=== PATIENT | female | born 1980 | race Caucasian/White ===

== ENCOUNTER → 2021-05-03 | Outpatient (CLI) | payer BC ==
--- NOTE | 2021-05-03 09:12 | MM ---
Reason for exam: clinical finding. Baseline mammogram. History: Family history of breast cancer in grandmother. Took hormonal contraceptives for 3 years beginning at age 16. Physical Findings: Nurse did not find any significant physical abnormalities on exam. MG Diagnostic Mammo w CAD MIGNON Bilateral CC and MLO view(s) were taken. There are scattered fibroglandular densities. There is no discrete abnormality including area of concern. These results were verbally communicated with the patient and result sheet given to the patient on 05/03/21. ASSESSMENT: Negative, BI-RAD 1 RECOMMENDATION: Routine screening mammogram of both breasts in 1 year. Manage patient on a clinical basis.
== END | disposition home or self-care (01) ==
LOC: RADMAMWWP 08:19
PROVIDERS: ATTEND Obstetrics & Gynecology
DX: N64.89 Other specified disorders of breast (principal); Z80.3 Family history of malignant neoplasm of breast; Z79.3 Long term (current) use of hormonal contraceptives
CPT/HCPCS: 77066

== ENCOUNTER 2024-06-17 12:23 | Emergency (ER) | payer BC ==
[2024-06-17] MEDS: CEPHALEXIN 500 MG CAP PO STA (13:21)
--- NOTE | 2024-06-17 13:40 | USB ---
Reason for Exam: Clinical finding. Patient History: Menarche at age 14. First Full-Term at age 20. Hormonal Contraceptives for 3 years from age 16 until age 19. Maternal grandmother had breast cancer. Risk Values: Marci 5 year model risk: 0.6%. NCI Lifetime model risk: 8.0%. Technique: Method: Targeted. Prior Study Comparison: 05/03/2021 Bilateral Diagnostic Mammogram, [facility]. Findings: The upper section of the breast of the left breast, the medial section of the breast of the left breast, the axilla of the left breast and the retroareolar of the left breast were scanned. Technique utilized:US breast limited LT Image; Ultrasound imaging of: Area of concern, retroareolar region and axilla. Vehicle Service Attendant reports evidence of infection with the indurated skin and erythema. Single lymph node at 2:00 13 Partha nipple with thickened cortex up to 4 mm. No suspicious masses. Overall Assessment: Probably benign, BI-RAD 3 Management: Diagnostic Breast Ultrasound of the left breast in 3 months. Follow-up ultrasound to ensure resolution after treatment with antibiotics. A clinical breast exam by your physician is recommended on an annual basis and results should be correlated with mammographic findings. This exam should not preclude additional follow-up of suspicious palpable abnormalities. Results were given to the patient verbally at the time of exam. [facility], , 06/17/2024 1:36 PM. Electronically signed and approved by: Patrick Chanel DO
--- NOTE | 2024-06-17 13:48 | ED ---
General Adult HPI - General Chief complaint: Skin/Abscess/Foreign Body Stated complaint: Skin Abscess Time Seen by Provider: 06/17/24 12:41 Source: patient, RN notes reviewed, old records reviewed Mode of arrival: ambulatory Limitations: no limitations - History of Present Illness Initial comments: 43-year-old female with pain and swelling to the left breast over the past several days. Patient has an appointment with her primary care provider today but states that the redness to her breast was worsening and she felt subjective fever and chills. She had noted some drainage from an area of the nipple or immediately adjacent to the nipple and reports green drainage. Patient is a nondiabetic. - Related Data Home Medications Medication Instructions Recorded Confirmed Ibd-Aati-Wqkyt Acid 1 each PO DAILY 07/25/14 07/25/14 [-U Capsule] Previous Rx's Medication Instructions Recorded Acetaminophen-Codeine 300-30mg 2 tab PO Q6H PRN #30 tablet 07/31/14 [Tylenol w/codeine #3] Labetalol [Trandate] 100 mg PO BID #28 tablet 08/12/14 Nitrofurantoin Monohyd/M-Cryst 100 mg PO Q12HR #14 cap 08/12/14 [Macrobid] Cephalexin [Keflex] 500 mg PO Q6HR 10 Days #40 cap 06/17/24 Sulfamethox-Tmp 800-160Mg [Bactrim 1 tab PO Q12HR #20 tab 06/17/24 DS 800-160 mg] Allergies Allergy/AdvReac Type Severity Reaction Status Date / Time Penicillins Allergy Rash/Hives Verified 06/17/24 12:31 Review of Systems ROS Statement: Those systems with pertinent positive or pertinent negative responses have been documented in the HPI. ROS Other: All systems not noted in ROS Statement are negative. Past Medical History Past Medical History: Skin Disorder Additional Past Medical History / Comment(s): rash upper leg History of Any Multi-Drug Resistant Organisms: None Reported Past Surgical History: Section, Tubal Ligation Past Anesthesia/Blood Transfusion Reactions: No Reported Reaction Past Psychological History: No Psychological Hx Reported Smoking Status: Former smoker Past Alcohol Use History: Occasional Past Drug Use History: Marijuana - Past Family History Father Family Medical History: Hyperlipidemia, Hypertension General Exam Limitations: no limitations General appearance: alert, in no apparent distress Head exam: Present: atraumatic, normocephalic Eye exam: Present: normal appearance ENT exam: Present: normal exam Neck exam: Present: normal inspection. Absent: tenderness, meningismus Respiratory exam: Present: normal lung sounds bilaterally. Absent: respiratory distress, wheezes Cardiovascular Exam: Present: regular rate, normal rhythm Neurological exam: Present: alert, oriented X3 Psychiatric exam: Present: normal affect, normal mood Skin exam: Present: warm, dry, other (Left breast exam, there is erythema covering the majority of the breast. There is no fluctuation there is mild central induration.) Course Vital Signs 06/17/24 12:25 Temperature 97.4 F L Pulse Rate 72 Respiratory 26 H Rate Blood Pressure 123/77 O2 Sat by Pulse 98 Oximetry - Reevaluation(s) Reevaluation #1: 06/17/24 1230 breast exam was performed with nurse Osman. Medical Decision Making - Medical Decision Making Was pt. sent in by a medical professional or institution (, GUS, SECURITIES ANALYST, urgent care, hospital, or half-way...) When possible be specific @ -No Did you speak to anyone other than the patient for history (EMS, parent, family, police, friend...)? What history was obtained from this source @ -No Did you review nursing and triage notes (agree or disagree)? Why? @ -I reviewed and agree with nursing and triage notes Were old charts reviewed (outside hosp., previous admission, EMS record, old EKG, old radiological studies, urgent care reports/EKG's, half-way records)? Report findings @ -No old charts were reviewed Differential Diagnosis: Breast abscess, breast cellulitis, breast cancer EKG interpreted by me (3pts min.). @ -As above X-rays interpreted by me (1pt min.). @ -None done CT interpreted by me (1pt min.). @ -None done U/S interpreted by me (1pt. min.). @ -[Ultrasound is negative for drainable abscess What testing was considered but not performed or refused? (CT, X-rays, U/S, labs)? Why? @ -None What meds were considered but not given or refused? Why? @ -None Did you discuss the management of the patient with other professionals (professionals i.e. , GUS, SECURITIES ANALYST, lab, RT, psych nurse, medical social consultant, missile mechanic, teacher, fisheries officer, case work aide)? Give summary @ -No Was smoking cessation discussed for >3mins.? @ -No Was critical care preformed (if so, how long)? @ -No Were there social determinants of health that impacted care today? How? (Homelessness, low income, unemployed, alcoholism, drug addiction, transportation, low edu. Level, literacy, decrease access to med. care, long term, rehab)? @ -No Was there de-escalation of care discussed even if they declined (Discuss DNR or withdrawal of care, Hospice)? DNR status @ -No What co-morbidities impacted this encounter? (DM, HTN, Smoking, COPD, CAD, Cancer, CVA, ARF, Chemo, Hep., AIDS, mental health diagnosis, sleep apnea, morbid obesity)? @ -None Was patient admitted / discharged? Hospital course, mention meds given and route, prescriptions, significant lab abnormalities, going to OR and other pertinent info. @ -33-year-old female with pain and swelling of the left breast there is erythema and induration. There is no palpable abscess and no drainable abscess on ultrasound. The patient is afebrile. She started on antibiotics and will follow-up with her primary care provider today just after discharge from the emergency department. Return parameters are discussed. Undiagnosed new problem with uncertain prognosis? @ -No Drug Therapy requiring intensive monitoring for toxicity (Heparin, Nitro, Insulin, Cardizem)? @ -No Were any procedures done? @ -No Diagnosis/symptom? @ -Breast cellulitis Acute, or Chronic, or Acute on Chronic? @ -Acute Uncomplicated (without systemic symptoms) or Complicated (systemic symptoms)? @ -Default Side effects of treatment? @ -No Exacerbation, Progression, or Severe Exacerbation? @ -No Poses a threat to life or bodily function? How? (Chest pain, USA, PA, pneumonia, PE, COPD, DKA, ARF, appy, cholecystitis, CVA, Diverticulitis, Homicidal, Suicidal, threat to staff... and all critical care pts) @ -Low risk at this time Disposition Clinical Impression: Cellulitis Disposition: HOME SELF-CARE Condition: Fair Instructions (If sedation given, give patient instructions): Cellulitis (ED) Prescriptions: Sulfamethox-Tmp 800-160Mg [Bactrim DS 800-160 mg] 1 tab PO Q12HR #20 tab Cephalexin [Keflex] 500 mg PO Q6HR 10 Days #40 cap Is patient prescribed a controlled substance at d/c from ED?: No Referrals: Silvestre Black DO [Primary Care Provider] - 1-2 days Time of Disposition: 13:48
[2024-06-17 13:57] VITALS: BP 106/65; PULSE 62; RESP 18; TEMP 98.4
== END 2024-06-17 13:58 | disposition home or self-care (01) ==
LOC: EC 12:23
CPT/HCPCS: 99283

== ENCOUNTER → 2024-09-18 | Outpatient (CLI) | payer BC ==
--- NOTE | 2024-09-18 07:51 | MM ---
Reason for Exam: Clinical finding. Last mammogram was performed 3 year(s) and 5 month(s) ago. Indicated Problems: Pain of the left side. Patient History: Menarche at age 14. First Full-Term at age 20. Hormonal Contraceptives for 3 years from age 16 until age 19. Maternal grandmother had breast cancer. Last menstrual period: 09/17/2023 Risk Values: Marci 5 year model risk: 0.6%. NCI Lifetime model risk: 8.0%. Prior Study Comparison: 05/03/2021 Bilateral Diagnostic Mammogram, [facility]. 06/17/2024 Left US breast limited LT, [facility]. Tissue Density: There are scattered areas of fibroglandular density. Analyzed By CAD. Overall Assessment: Benign, BI-RAD 2 Management: Screening Mammogram of both breasts in 1 year. Electronically signed and approved by: Yuval Laboy M.D.
== END | disposition home or self-care (01) ==
LOC: RADMAMWWP 07:10
PROVIDERS: ATTEND Family Medicine
DX: N64.52 Nipple discharge (principal); N63.0 Unspecified lump in unspecified breast; Z80.3 Family history of malignant neoplasm of breast; R92.323 Mammographic fibroglandular density, bilateral breasts
CPT/HCPCS: 77062; 77066

== ENCOUNTER 2024-10-01 19:24 | Emergency (ER) | payer BC ==
[2024-10-01 20:38] LABS: Basophils % (A) 0 %; Eosinophils # (A) 0.1 k/uL (0-0.7); Eosinophils % (A) 1 %; HGB 13.5 gm/dL (11.4-16.0); Lymphocytes # (A) 1.1 k/uL (1.0-4.8); Lymphocytes % (A) 9 %; MCH 26.5 pg (25.0-35.0); MCHC 33.7 g/dL (31.0-37.0); MCV 78.7 fL (80.0-100.0); Mean Platelet Volume 8.9; Monocytes # (A) 0.3 k/uL (0-1.0); Monocytes % (A) 3 %; Neutrophils % (A) 88 %; Platelet Count 374 k/uL (150-450); RBC 5.08 m/uL (3.80-5.40); RDW 15.7 % (11.5-15.5); WBC 12.5 k/uL (3.8-10.6)
[2024-10-01] MEDS: SODIUM CHLORIDE 0.9% 1,000 ML IV STA (20:53)
[2024-10-01] MEDS: HYDROmorphone 0.5 MG/0.5 ML SYRINGE IVP STA (20:56)
[2024-10-01] MEDS: ONDANSETRON 4 MG/2 ML VIAL IVP STA (20:56)
[2024-10-01 21:10] LABS: HCG,Qualitative Serum Not Detected
[2024-10-01 21:13] LABS: ALT 23 U/L (4-34); AST 37 U/L (14-36); African American GFR (CKD) >90 (>60 ml/min/1.73 sqM); Albumin 5.1 g/dL (3.5-5.0); Alkaline Phosphatase 84 U/L (38-126); Amylase 50 U/L (30-110); Anion Gap 19 mmol/L; Blood Urea Nitrogen 17 mg/dL (7-17); Calcium 10.2 mg/dL (8.4-10.2); Carbon Dioxide 21 mmol/L (22-30); Chloride 98 mmol/L (98-107); Glucose 106 mg/dL (74-99); Lipase 60 U/L (23-300); Non-African American GFR(CKD) >90 (>60 ml/min/1.73 sqM); Sodium 138 mmol/L (137-145); Total Protein 8.5 g/dL (6.3-8.2)
[2024-10-01 21:16] LABS: Potassium 3.4 mmol/L (3.5-5.1)
[2024-10-01 21:17] LABS: Influenza A Not Detected (Not Detectd); Influenza B Not Detected (Not Detectd); RSV Not Detected (Not Detectd)
--- NOTE | 2024-10-01 21:39 | ED ---
Abdominal Pain HPI - General Chief Complaint: Abdominal Pain Stated Complaint: Weakness,Vomiting Time Seen by Provider: 10/01/24 19:41 Source: patient Mode of arrival: wheelchair - History of Present Illness Initial Comments: 44-year-old female presenting with chief complaint of nausea vomiting abdominal pain. Patient has been having abdominal pain on and off for about a year. S tates that it is diffuse abdominal pain cramping in nature. States that today she started having nausea vomiting and diarrhea which is making her pain worse. States that she had a similar episode back on Monday but it shortly subsided. No fever. No hematemesis, hematochezia, melena. No cough congestion or sore throat. No chest pain or difficulty breathing. Patient is a daily marijuana smoker. Denies alcohol use. - Related Data Home Medications Medication Instructions Recorded Confirmed Rgr-Vrgu-Toryi Acid 1 each PO DAILY 07/25/14 07/25/14 [-U Capsule] Previous Rx's Medication Instructions Recorded Acetaminophen-Codeine 300-30mg 2 tab PO Q6H PRN #30 tablet 07/31/14 [Tylenol w/codeine #3] Labetalol [Trandate] 100 mg PO BID #28 tablet 08/12/14 Nitrofurantoin Monohyd/M-Cryst 100 mg PO Q12HR #14 cap 08/12/14 [Macrobid] Cephalexin [Keflex] 500 mg PO Q6HR 10 Days #40 cap 06/17/24 Sulfamethox-Tmp 800-160Mg [Bactrim 1 tab PO Q12HR #20 tab 06/17/24 DS 800-160 mg] Ondansetron Odt [Zofran Odt] 4 mg PO Q8HR PRN #20 tab 10/01/24 Allergies Allergy/AdvReac Type Severity Reaction Status Date / Time Penicillins Allergy Rash/Hives Verified 06/17/24 12:31 Review of Systems ROS Statement: Those systems with pertinent positive or pertinent negative responses have been documented in the HPI. ROS Other: All systems not noted in ROS Statement are negative. Past Medical History Past Medical History: Skin Disorder Additional Past Medical History / Comment(s): rash upper leg History of Any Multi-Drug Resistant Organisms: None Reported Past Surgical History: Section, Tubal Ligation Past Anesthesia/Blood Transfusion Reactions: No Reported Reaction Past Psychological History: No Psychological Hx Reported Smoking Status: Former smoker Past Alcohol Use History: Occasional Past Drug Use History: Marijuana - Past Family History Father Family Medical History: Hyperlipidemia, Hypertension General Exam Limitations: no limitations General appearance: alert, in no apparent distress Head exam: Present: atraumatic, normocephalic, normal inspection Eye exam: Present: normal appearance, EOMI Neck exam: Present: normal inspection. Absent: meningismus Respiratory exam: Present: normal lung sounds bilaterally. Absent: respiratory distress, wheezes, rales, rhonchi, stridor Cardiovascular Exam: Present: regular rate, normal rhythm, normal heart sounds. Absent: systolic murmur, diastolic murmur, rubs, gallop, clicks GI/Abdominal exam: Present: soft, tenderness. Absent: distended, guarding, rebound, rigid Neurological exam: Present: alert, oriented X3 Psychiatric exam: Present: normal affect, normal mood Skin exam: Present: warm, dry Course Vital Signs 10/01/24 10/01/24 19:32 22:35 Temperature 98.1 F 98.5 F Pulse Rate 67 65 Respiratory 18 16 Rate Blood Pressure 134/84 110/67 O2 Sat by Pulse 100 98 Oximetry Medical Decision Making - Medical Decision Making Was pt. sent in by a medical professional or institution (, PA, STAGE MANAGER, urgent care, hospital, or skilled nursing...) When possible be specific @ -No Did you speak to anyone other than the patient for history (EMS, parent, family, police, friend...)? What history was obtained from this source @ -No Did you review nursing and triage notes (agree or disagree)? Why? @ -I reviewed and agree with nursing and triage notes Were old charts reviewed (outside hosp., previous admission, EMS record, old EKG, old radiological studies, urgent care reports/EKG's, skilled nursing records)? Report findings @ -No old charts were reviewed Differential Diagnosis (chest pain, altered mental status, abdominal pain women, abdominal pain men, vaginal bleeding, weakness, fever, dyspnea, syncope, he adache, dizziness, GI bleed, back pain, seizure, CVA, palpatations, mental health, musculoskeletal)? @ -Differential includes cannabinoid induced hyperemesis, appendicitis, gastroenteritis, bowel obstruction, not an all-inclusive list EKG interpreted by me (3pts min.). @ -As above X-rays interpreted by me (1pt min.). @ -None done CT interpreted by me (1pt min.). @ -None done U/S interpreted by me (1pt. min.). @ -None done What testing was considered but not performed or refused? (CT, X-rays, U/S, labs)? Why? @ -None What meds were considered but not given or refused? Why? @ -None Did you discuss the management of the patient with other professionals (professionals i.e. , PA, STAGE MANAGER, lab, RT, psych nurse, social services coordinator, regulatory compliance director, teacher, risk control officer, rn field case manager)? Give summary @ -No Was smoking cessation discussed for >3mins.? @ -No Was critical care preformed (if so, how long)? @ -No Were there social determinants of health that impacted care today? How? (Homelessness, low income, unemployed, alcoholism, drug addiction, transportation, low edu. Level, literacy, decrease access to med. care, long term, rehab)? @ -No Was there de-escalation of care discussed even if they declined (Discuss DNR or withdrawal of care, Hospice)? DNR status @ -No What co-morbidities impacted this encounter? (DM, HTN, Smoking, COPD, CAD, Cancer, CVA, ARF, Chemo, Hep., AIDS, mental health diagnosis, sleep apnea, morbid obesity)? @ -None Was patient admitted / discharged? Hospital course, mention meds given and route, prescriptions, significant lab abnormalities, going to OR and other pert inent info. @ -44-year-old female presenting with chief complaint of nausea vomiting and abdominal pain. This pain is diffuse throughout the entire abdomen, no localized pain. Is a cramping sensation. Nausea and vomiting started today. She has been having abdominal pain for a year. History and physical examination are conducted. WBC 12.5, may be reactive. Potassium 3.4, patient is given 20 mEq K-Dur. hCG is negative. Amylase and lipase are WNL. 4+ ketones, likely due to dehydration, patient is receiving IV fluids. She is negative for influenza, RSV, COVID. On reassessment she reports significant improvement in her symptoms. She feels ready for discharge home. She will follow-up with gastroenterology. Follow-up with PCP. Report back to ER with any new or worsening symptoms. Discussed return parameters and answered all questions. Patient conveyed verbal understanding and agreed to the plan. I discussed this case in detail with my attending Dr. Murcia Undiagnosed new problem with uncertain prognosis? @ -No Drug Therapy requiring intensive monitoring for toxicity (Heparin, Nitro, Insulin, Cardizem)? @ -No Were any procedures done? @ -No Diagnosis/symptom? @ -Nausea vomiting Acute, or Chronic, or Acute on Chronic? @ -Acute Uncomplicated (without systemic symptoms) or Complicated (systemic symptoms)? @ -Uncomplicated Side effects of treatment? @ -No Exacerbation, Progression, or Severe Exacerbation? @ -No Poses a threat to life or bodily function? How? (Chest pain, USA, OR, pneumonia, PE, COPD, DKA, ARF, appy, cholecystitis, CVA, Diverticulitis, Homicidal, Suicidal, threat to staff... and all critical care pts) @ -Unlikely - Lab Data Result diagrams: 10/01/24 20:09 10/01/24 20:09 Lab Results 10/01/24 10/01/24 10/01/24 Range/Units 20:09 20:09 20:09 WBC 12.5 H (3.8-10.6) k/uL RBC 5.08 (3.80-5.40) m/uL Hgb 13.5 (11.4-16.0) gm/dL Hct 40.0 (34.0-46.0) % MCV 78.7 L (80.0-100.0) fL MCH 26.5 (25.0-35.0) pg MCHC 33.7 (31.0-37.0) g/dL RDW 15.7 H (11.5-15.5) % Plt Count 374 (150-450) k/uL MPV 8.9 Neutrophils % 88 % Lymphocytes % 9 % Monocytes % 3 % Eosinophils % 1 % Basophils % 0 % Neutrophils # 11.0 H (1.3-7.7) k/uL Lymphocytes # 1.1 (1.0-4.8) k/uL Monocytes # 0.3 (0-1.0) k/uL Eosinophils # 0.1 (0-0.7) k/uL Basophils # 0.0 (0-0.2) k/uL Sodium 138 (137-145) mmol/L Potassium 3.4 L (3.5-5.1) mmol/L Chloride 98 (98-107) mmol/L Carbon Dioxide 21 L (22-30) mmol/L Anion Gap 19 mmol/L BUN 17 (7-17) mg/dL Creatinine 0.73 (0.52-1.04) mg/dL Est GFR (CKD-EPI)AfAm >90 (>60 ml/min/1.73 sqM) Est GFR (CKD-EPI)NonAf >90 (>60 ml/min/1.73 sqM) Glucose 106 H (74-99) mg/dL Calcium 10.2 (8.4-10.2) mg/dL Total Bilirubin 1.0 (0.2-1.3) mg/dL AST 37 H (14-36) U/L ALT 23 (4-34) U/L Alkaline Phosphatase 84 (38-126) U/L Total Protein 8.5 H (6.3-8.2) g/dL Albumin 5.1 H (3.5-5.0) g/dL Amylase 50 (30-110) U/L Lipase 60 (23-300) U/L HCG, Qual Not Detected Urine Color Urine Appearance (Clear) Urine pH (5.0-8.0) Ur Specific Frost (1.001-1.035) Urine Protein (Negative) Urine Glucose (UA) (Negative) Urine Ketones (Negative) Urine Blood (Negative) Urine Nitrite (Negative) Urine Bilirubin (Negative) Urine Urobilinogen (<2.0) mg/dL Ur Leukocyte Esterase (Negative) Influenza Type A (PCR) Not Detected (Not Detectd) Influenza Type B (PCR) Not Detected (Not Detectd) RSV (PCR) Not Detected (Not Detectd) SARS-CoV-2 (PCR) Not Detected (Not Detectd) 10/01/24 Range/Units 21:50 WBC (3.8-10.6) k/uL RBC (3.80-5.40) m/uL Hgb (11.4-16.0) gm/dL Hct (34.0-46.0) % MCV (80.0-100.0) fL MCH (25.0-35.0) pg MCHC (31.0-37.0) g/dL RDW (11.5-15.5) % Plt Count (150-450) k/uL MPV Neutrophils % % Lymphocytes % % Monocytes % % Eosinophils % % Basophils % % Neutrophils # (1.3-7.7) k/uL Lymphocytes # (1.0-4.8) k/uL Monocytes # (0-1.0) k/uL Eosinophils # (0-0.7) k/uL Basophils # (0-0.2) k/uL Sodium (137-145) mmol/L Potassium (3.5-5.1) mmol/L Chloride (98-107) mmol/L Carbon Dioxide (22-30) mmol/L Anion Gap mmol/L BUN (7-17) mg/dL Creatinine (0.52-1.04) mg/dL Est GFR (CKD-EPI)AfAm (>60 ml/min/1.73 sqM) Est GFR (CKD-EPI)NonAf (>60 ml/min/1.73 sqM) Glucose (74-99) mg/dL Calcium (8.4-10.2) mg/dL Total Bilirubin (0.2-1.3) mg/dL AST (14-36) U/L ALT (4-34) U/L Alkaline Phosphatase (38-126) U/L Total Protein (6.3-8.2) g/dL Albumin (3.5-5.0) g/dL Amylase (30-110) U/L Lipase (23-300) U/L HCG, Qual Urine Color Yellow Urine Appearance Clear (Clear) Urine pH 7.5 (5.0-8.0) Ur Specific Frost 1.026 (1.001-1.035) Urine Protein Trace H (Negative) Urine Glucose (UA) Negative (Negative) Urine Ketones 4+ H (Negative) Urine Blood Negative (Negative) Urine Nitrite Negative (Negative) Urine Bilirubin Negative (Negative) Urine Urobilinogen <2.0 (<2.0) mg/dL Ur Leukocyte Esterase Negative (Negative) Influenza Type A (PCR) (Not Detectd) Influenza Type B (PCR) (Not Detectd) RSV (PCR) (Not Detectd) SARS-CoV-2 (PCR) (Not Detectd) Disposition Clinical Impression: Nausea & vomiting Disposition: HOME SELF-CARE Condition: Good Instructions (If sedation given, give patient instructions): Acute Nausea and Vomiting (ED), Abdominal Pain (ED) Additional Instructions: Follow-up with PCP and GI. Report back to ER with any new or worsening symptoms. I advised that you stop smoking marijuana, as daily marijuana use is associated with hyperemesis Prescriptions: Ondansetron Odt [Zofran Odt] 4 mg PO Q8HR PRN #20 tab PRN Reason: Nausea Is patient prescribed a controlled substance at d/c from ED?: No Referrals: Silvestre Black DO [Primary Care Provider] - 1-2 days Stephanie Flynn MD [STAFF PHYSICIAN] - 1-2 days Time of Disposition: 22:27
[2024-10-01] MEDS: POTASSIUM CHLORIDE ER 20 MEQ TAB.ER PO STA (21:58)
[2024-10-01 22:04] LABS: Appearance,Urine Clear (Clear); Bilirubin,Urine Negative (Negative); Blood,Urine Negative (Negative); Color,Urine Yellow; Glucose,Urine (UA) Negative (Negative); Ketones,Urine 4+ (Negative); Leukocyte Esterase,Urine Negative (Negative); Nitrite,Urine Negative (Negative); PH, Urine 7.5 (5.0-8.0); Protein,Urine Trace (Negative); Specific Gravity,Urine 1.026 (1.001-1.035); Urobilinogen,Urine <2.0 mg/dL (<2.0)
[2024-10-01 22:37] VITALS: BP 110/67; PULSE 65; RESP 16; TEMP 98.5
[2024-10-01] MEDS: METOCLOPRAMIDE 5 MG/ML 2 ML VIAL IVP STA (22:38)
== END 2024-10-01 22:40 | disposition home or self-care (01) ==
LOC: EC 19:24
DX: R11.2 Nausea with vomiting, unspecified (principal); Z88.0 Allergy status to penicillin; Z87.891 Personal history of nicotine dependence; Z11.52 Encounter for screening for COVID-19
CPT/HCPCS: 36415; 93005; 80053; 82150; 83690; 85025; 81003; 84703; 87636; 99284; 96374; 96375 ×2; 96361 ×2; J2765; J2405; J1171